=== PATIENT | female | born 1995 | race Two or more races ===

== ENCOUNTER 2021-10-08 22:50 | Emergency (ER) | payer OTHER, BC ==
[~2021-10-08] VITALS: Ht 165.1 cm; Wt 74.8 kg
[2021-10-08 23:04] VITALS: BP_SYST 134
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
--- NOTE | 2021-10-08 23:10 | NUR ---
ER at bedside examining patient.
--- NOTE | 2021-10-08 23:42 | NUR ---
XR AT BEDSIDE
[2021-10-08] MEDS ORDERED: IBUPROFEN 600 MG TABLET PO ONE (23:45)
[2021-10-09] MEDS ORDERED: NAPR-686 PO (00:57)
[2021-10-09] MEDS ORDERED: ACET1TAB23 PO (00:57)
--- NOTE | 2021-10-09 01:06 | NUR ---
Patient given written and verbal discharge instructions and verbalizes understanding. ER MD discussed with patient the results and treatment provided. Patient in stable condition. ID arm band removed. Rx of Tylenol 3 and Naproxen given. Patient educated on pain management and to follow up with PMD. Pain Scale 2/10. Opportunity for questions provided and answered. Medication side effect fact sheet provided.
[2021-10-09 01:09] VITALS: BP_SYST 131
== END 2021-10-09 01:06 | disposition home or self-care (01) ==
LOC: SED 22:50
DX: S60.221A Contusion of right hand, initial encounter (principal); G56.31 Lesion of radial nerve, right upper limb; R06.4 Hyperventilation; V49.49XA Driver injured in collision with other motor vehicles in traffic accident, initial encounter; Y93.89 Activity, other specified; Y92.89 Other specified places as the place of occurrence of the external cause; Y99.8 Other external cause status
CPT/HCPCS: 99283